=== PATIENT | female | born 1960 | race Caucasian/White ===

== ENCOUNTER 2017-04-20 13:52 | Outpatient (CLI) | payer MEDICARE, MEDICAID ==
[~2017-04-20 13:52] MED LIST: AMPH20CA3 PO; CLON-527 PO; FLUT1DIS4 IH; HYDR-3968 PO; HYDR12.5 PO; LEDI1TAB PO; TRAZ-146 PO; VALS160T2 PO
[2017-04-20 14:23] LABS: BASOPHILS % (AUTO) 0.7 % (0-1); EOSINOPHILS # (AUTO) 0.1 X10'3 (0-0.9); EOSINOPHILS % (AUTO) 2.6 % (0-6); HEMATOCRIT 42.6 % (35.0-45.0); HEMOGLOBIN 14.3 g/dl (12.0-16.0); LYMPHOCYTES # (AUTO) 1.7 X10'3 (1.1-4.8); LYMPHOCYTES % (AUTO) 36.1 % (21-51); MEAN CORPUSCULAR HGB CONC 33.5 % (33.0-36.5); MEAN CORPUSCULAR VOLUME 92.4 FL (78-98); MEAN PLATELET VOLUME 7.3 FL (7.4-10.4); MONOCYTES # (AUTO) 0.3 X10'3 (0-0.9); MONOCYTES % (AUTO) 5.9 % (2-12); NEUTROPHILS # (AUTO) 2.5 X10'3 (1.8-7.7); NEUTROPHILS % (AUTO) 54.7 % (42-75); PLATELET COUNT 272 X10'3 (140-440); RED BLOOD COUNT 4.61 X10'6 (4.20-5.60); RED CELL DISTRIBUTION WIDTH 14.6 % (11.5-14.5); WHITE BLOOD COUNT 4.7 X10'3 (4.5-11.0)
[2017-04-20 14:33] LABS: INR 0.9 INR; PARTIAL THROMBOPLASTIN TIME 25 SECONDS (22-32); PROTHROMBIN TIME 9.5 SECONDS (9.0-12.0)
[2017-04-20 14:37] LABS: ALANINE AMINOTRANSFERASE 22 U/L (12-78); ALBUMIN 3.6 G/DL (3.4-5.0); ALKALINE PHOSPHATASE 74 IU/L (46-116); ANION GAP 4 (8-16); ASPARTATE AMINO TRANSFERASE 16 U/L (10-37); BILIRUBIN,TOTAL 0.4 MG/DL (0.1-1.0); BLOOD UREA NITROGEN 23 MG/DL (7-18); BUN/CREATININE RATIO 18.9 (6.6-38.0); CALCIUM 9.2 MG/DL (8.5-10.1); CHLORIDE 107 MMOL/L (99-107); CREATININE 1.22 MG/DL (0.40-0.90); GLUCOSE 106 MG/DL (70-104); POTASSIUM 4.4 MMOL/L (3.5-5.1); SODIUM 142 MMOL/L (135-145); TOTAL CARBON DIOXIDE 30.6 MMOL/L (24-32); TOTAL PROTEIN 7.2 G/DL (6.4-8.2); eGFR 46 ML/MIN
== END 2017-04-20 23:59 | disposition home or self-care (01) ==
LOC: LAB 13:52
PROVIDERS: ATTEND Otolaryngology
DX: D69.1 Qualitative platelet defects (principal); I10 Essential (primary) hypertension; Z86.19 Personal history of other infectious and parasitic diseases
CPT/HCPCS: 36415; 80053; 85025; 85576; 85610; 85730

== ENCOUNTER 2018-05-26 11:20 | Emergency (ER) | payer MEDICARE, MEDICAID ==
[~2018-05-26] VITALS: Ht 167.6 cm; Wt 90.0 kg
[~2018-05-26 11:20] MED LIST changes: -TRAZ-146 PO; +TRAZ-219 PO
[2018-05-26] MEDS ORDERED: guaiFENesin/DM 10ml UD oral syrup PO ONE (12:45)
[2018-05-26] MEDS ORDERED: GUAI5SYR4 PO (12:48)
[2018-05-26 12:57] VITALS: BP 188/113
== END 2018-05-26 12:58 | disposition home or self-care (01) ==
LOC: ER 11:21
DX: J20.9 Acute bronchitis, unspecified (principal); R11.0 Nausea; I10 Essential (primary) hypertension; K21.9 Gastro-esophageal reflux disease without esophagitis; F41.9 Anxiety disorder, unspecified; M06.9 Rheumatoid arthritis, unspecified; F12.10 Cannabis abuse, uncomplicated; Z86.19 Personal history of other infectious and parasitic diseases; Z86.73 Personal history of transient ischemic attack (TIA), and cerebral infarction without residual deficits; Z98.890 Other specified postprocedural states; Z98.51 Tubal ligation status; Z88.2 Allergy status to sulfonamides; Z88.8 Allergy status to other drugs, medicaments and biological substances
CPT/HCPCS: 71046; 99283

== ENCOUNTER 2019-01-14 10:15 | Emergency (ER) | payer MEDICARE, MEDICAID ==
[~2019-01-14] VITALS: Ht 167.6 cm; Wt 85.3 kg
[~2019-01-14 10:15] MED LIST changes: +GUAI5SYR4 PO
[2019-01-14] MEDS ORDERED: ketorolac tromethamine 15mg/ml inj. IM ONE (11:40)
[2019-01-14 11:41] VITALS: BP 147/111
== END 2019-01-14 12:09 | disposition home or self-care (01) ==
LOC: ER 10:16
DX: S82.422A Displaced transverse fracture of shaft of left fibula, initial encounter for closed fracture (principal); I10 Essential (primary) hypertension; K21.9 Gastro-esophageal reflux disease without esophagitis; F41.9 Anxiety disorder, unspecified; M06.9 Rheumatoid arthritis, unspecified; F12.90 Cannabis use, unspecified, uncomplicated; Z98.51 Tubal ligation status; Z88.2 Allergy status to sulfonamides; Z88.8 Allergy status to other drugs, medicaments and biological substances; Z79.899 Other long term (current) drug therapy; Z86.73 Personal history of transient ischemic attack (TIA), and cerebral infarction without residual deficits; Z98.890 Other specified postprocedural states; W01.0XXA Fall on same level from slipping, tripping and stumbling without subsequent striking against object, initial encounter; Y93.01 Activity, walking, marching and hiking; Y92.89 Other specified places as the place of occurrence of the external cause; Y99.8 Other external cause status
CPT/HCPCS: 73630; 96372; 99284; J1885

== ENCOUNTER 2019-03-18 21:56 | Emergency (ER) | payer MEDICARE, MEDICAID ==
[~2019-03-18] VITALS: Ht 167.6 cm; Wt 85.0 kg
[2019-03-18 22:02] VITALS: BP 151/102
== END 2019-03-18 23:00 | disposition home or self-care (01) ==
LOC: ER 21:56
DX: S92.401D Displaced unspecified fracture of right great toe, subsequent encounter for fracture with routine healing (principal); I10 Essential (primary) hypertension; K21.9 Gastro-esophageal reflux disease without esophagitis; M06.9 Rheumatoid arthritis, unspecified; F12.90 Cannabis use, unspecified, uncomplicated; G89.29 Other chronic pain; Z98.51 Tubal ligation status; Z98.890 Other specified postprocedural states; Z88.2 Allergy status to sulfonamides; Z86.73 Personal history of transient ischemic attack (TIA), and cerebral infarction without residual deficits; Z88.8 Allergy status to other drugs, medicaments and biological substances; Z79.899 Other long term (current) drug therapy; W18.49XD Other slipping, tripping and stumbling without falling, subsequent encounter
CPT/HCPCS: 99282; 99283

== ENCOUNTER → 2020-11-12 | Emergency (ER) | payer MEDICARE, MEDICAID ==
[~2020-11-12] VITALS: Ht 167.6 cm; Wt 85.8 kg
[~2020-11-12] MED LIST changes: -TRAZ-219 PO; +TRAZ-256 PO
[2020-11-12 20:55] VITALS: BP 113/83
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
== END | disposition left against medical advice (07) ==
LOC: ER 20:46
DX: R68.84 Jaw pain (principal); Z53.21 Procedure and treatment not carried out due to patient leaving prior to being seen by health care provider

== ENCOUNTER 2021-09-29 02:23 | Emergency (ER) | payer MEDICARE, MEDICAID ==
[~2021-09-29] VITALS: Ht 172.7 cm; Wt 75.0 kg
[2021-09-29 03:42] LABS: APTT 27 SECONDS (22-32); D-DIMER 0.25 MG/L FEU (0-0.50)
[2021-09-29 04:03] LABS: BASOPHILS % (AUTO) 0.5 % (0-1); EOSINOPHILS # (AUTO) 0.1 X10'3 (0-0.9); EOSINOPHILS % (AUTO) 1.7 % (0-6); HEMATOCRIT 32.6 % (35.0-45.0); HEMOGLOBIN 11.2 g/dl (12.0-16.0); LYMPHOCYTES # (AUTO) 2.1 X10'3 (1.1-4.8); LYMPHOCYTES % (AUTO) 33.6 % (21-51); MEAN CORPUSCULAR HEMOGLOBIN 32.1 PG (27.0-31.0); MEAN CORPUSCULAR HGB CONC 34.3 g/dL (33.0-36.5); MEAN CORPUSCULAR VOLUME 93.7 FL (78-98); MEAN PLATELET VOLUME 7.6 FL (7.4-10.4); MONOCYTES # (AUTO) 0.4 X10'3 (0-0.9); MONOCYTES % (AUTO) 6.5 % (2-12); NEUTROPHILS # (AUTO) 3.5 X10'3 (1.8-7.7); NEUTROPHILS % (AUTO) 57.7 % (42-75); PLATELET COUNT 201 X10'3 (140-440); RED BLOOD COUNT 3.48 X10'6 (4.20-5.60); RED CELL DISTRIBUTION WIDTH 13.4 % (11.5-14.5); WHITE BLOOD COUNT 6.1 X10'3 (4.5-11.0)
[2021-09-29 04:08] LABS: ALANINE AMINOTRANSFERASE 12 U/L (12-78); ALBUMIN 3.2 G/DL (3.4-5.0); ALBUMIN/GLOBULIN RATIO 1.1 (1.1-1.5); ALKALINE PHOSPHATASE 51 IU/L (46-116); ANION GAP 6 (8-16); ASPARTATE AMINO TRANSFERASE 13 U/L (10-37); BILIRUBIN,TOTAL 0.6 MG/DL (0.1-1.0); BLOOD UREA NITROGEN 20 MG/DL (7-18); CALCIUM 8.6 MG/DL (8.5-10.1); CHLORIDE 105 MMOL/L (99-107); GLUCOSE 111 MG/DL (70-104); POTASSIUM 3.6 MMOL/L (3.5-5.1); SODIUM 139 MMOL/L (135-145); TOTAL CARBON DIOXIDE 27.6 MMOL/L (24-32); TOTAL PROTEIN 6.2 G/DL (6.4-8.2); eGFR 73 ML/MIN
[2021-09-29] MEDS ORDERED: ketorolac trometh inj. 60 MG/2 ML VIAL IM ONE (04:15)
[2021-09-29] MEDS ORDERED: ondansetron 4mg rapidly disintigrating tab PO ONE (04:25)
[2021-09-29] MEDS ORDERED: hydrOXYzine 10 MG tablet PO PRN (04:25)
[2021-09-29] MEDS ORDERED: morphine 4 MG/ML inj SYRINge IM ONE (05:00)
[2021-09-29 05:46] VITALS: BP 140/96
== END 2021-09-29 05:50 | disposition home or self-care (01) ==
LOC: ER 02:24
DX: S80.12XA Contusion of left lower leg, initial encounter (principal); R51.9 Headache, unspecified; R11.2 Nausea with vomiting, unspecified; I10 Essential (primary) hypertension; K21.9 Gastro-esophageal reflux disease without esophagitis; M19.90 Unspecified osteoarthritis, unspecified site; F41.9 Anxiety disorder, unspecified; F12.90 Cannabis use, unspecified, uncomplicated; Z86.19 Personal history of other infectious and parasitic diseases; Z86.73 Personal history of transient ischemic attack (TIA), and cerebral infarction without residual deficits; Z86.69 Personal history of other diseases of the nervous system and sense organs; Z98.51 Tubal ligation status; Z98.890 Other specified postprocedural states; Z88.2 Allergy status to sulfonamides; Z79.899 Other long term (current) drug therapy; X58.XXXA Exposure to other specified factors, initial encounter; Y93.89 Activity, other specified; Y92.89 Other specified places as the place of occurrence of the external cause; Y99.8 Other external cause status
CPT/HCPCS: 36415; 80053; 85025; 85379; 85610; 85730; 96372; 99284; J1885; J2270

== ENCOUNTER 2021-10-23 15:30 | Emergency (ER) | payer MEDICARE, MEDICAID ==
[~2021-10-23] VITALS: Ht 167.6 cm; Wt 76.2 kg
[2021-10-23 15:45] VITALS: BP 130/99
--- NOTE | 2021-10-23 17:19 | NUR ---
Discharge intructions was explained to patient, patient verbalized understanding and refused to be sent home with crunches. Stated she has a cane at home and would prefer to use that.
== END 2021-10-23 17:39 | disposition home or self-care (01) ==
LOC: ER 15:31
DX: S93.401A Sprain of unspecified ligament of right ankle, initial encounter (principal); K21.9 Gastro-esophageal reflux disease without esophagitis; I10 Essential (primary) hypertension; F41.9 Anxiety disorder, unspecified; F12.10 Cannabis abuse, uncomplicated; X50.0XXA Overexertion from strenuous movement or load, initial encounter; Y93.89 Activity, other specified; Y92.89 Other specified places as the place of occurrence of the external cause; Y99.8 Other external cause status
CPT/HCPCS: 73610; 99283; A6449

== ENCOUNTER 2021-11-25 01:41 | Emergency (ER) | payer MEDICARE, MEDICAID ==
[~2021-11-25] VITALS: Ht 167.6 cm; Wt 73.2 kg
[2021-11-25 02:39] LABS: BASOPHILS % (AUTO) 0.5 % (0-1); EOSINOPHILS # (AUTO) 0.1 X10'3 (0-0.9); EOSINOPHILS % (AUTO) 1.8 % (0-6); HEMOGLOBIN 12.4 g/dl (12.0-16.0); LYMPHOCYTES # (AUTO) 2.4 X10'3 (1.1-4.8); LYMPHOCYTES % (AUTO) 36.4 % (21-51); MEAN CORPUSCULAR HEMOGLOBIN 31.9 PG (27.0-31.0); MEAN CORPUSCULAR HGB CONC 34.3 g/dL (33.0-36.5); MEAN CORPUSCULAR VOLUME 93.1 FL (78-98); MONOCYTES # (AUTO) 0.4 X10'3 (0-0.9); MONOCYTES % (AUTO) 6.1 % (2-12); NEUTROPHILS # (AUTO) 3.6 X10'3 (1.8-7.7); NEUTROPHILS % (AUTO) 55.2 % (42-75); PLATELET COUNT 227 X10'3 (140-440); RED BLOOD COUNT 3.87 X10'6 (4.20-5.60); RED CELL DISTRIBUTION WIDTH 13.2 % (11.5-14.5); WHITE BLOOD COUNT 6.5 X10'3 (4.5-11.0)
[2021-11-25] MEDS ORDERED: AMPH30CA3 PO (02:40)
[2021-11-25] MEDS ORDERED: PROG200C11 PO (02:40)
[2021-11-25] MEDS ORDERED: HYDR25TA4 PO (02:40)
[2021-11-25] MEDS ORDERED: ESTR1PAT34 TOP (02:40)
[2021-11-25] MEDS ORDERED: POTA-208 PO (02:40)
[2021-11-25] MEDS ORDERED: LORA10TA7 (02:40)
[2021-11-25] MEDS ORDERED: DULO60CA65 PO (02:40)
[2021-11-25] MEDS ORDERED: GABA300T25 PO (02:40)
[2021-11-25] MEDS ORDERED: HYDR-3972 PO (02:40)
[2021-11-25] MEDS ORDERED: PROP20TA6 PO (02:40)
[2021-11-25] MEDS ORDERED: IBUP-1985 PO (02:40)
[2021-11-25 02:58] LABS: ALANINE AMINOTRANSFERASE 18 U/L (12-78); ALBUMIN 3.5 G/DL (3.4-5.0); ALKALINE PHOSPHATASE 61 IU/L (46-116); ANION GAP 6 (8-16); ASPARTATE AMINO TRANSFERASE 14 U/L (10-37); BILIRUBIN,TOTAL 0.5 MG/DL (0.1-1.0); BLOOD UREA NITROGEN 13 MG/DL (7-18); BUN/CREATININE RATIO 15.5 (6.6-38.0); CALCIUM 8.6 MG/DL (8.5-10.1); CHLORIDE 103 MMOL/L (99-107); CREATININE 0.84 MG/DL (0.40-0.90); GLUCOSE 84 MG/DL (70-104); POTASSIUM 3.8 MMOL/L (3.5-5.1); SODIUM 138 MMOL/L (135-145); eGFR 69 ML/MIN
[2021-11-25 03:44] VITALS: BP 108/77
== END 2021-11-25 03:51 | disposition home or self-care (01) ==
LOC: ER 01:42
DX: R42 Dizziness and giddiness (principal); I10 Essential (primary) hypertension; K21.9 Gastro-esophageal reflux disease without esophagitis; F41.9 Anxiety disorder, unspecified; F12.10 Cannabis abuse, uncomplicated; Z88.2 Allergy status to sulfonamides; Z88.8 Allergy status to other drugs, medicaments and biological substances; Z79.899 Other long term (current) drug therapy; Z98.51 Tubal ligation status
CPT/HCPCS: 71045; 80053; 83880; 84484; 85025; 93005; 99285

== ENCOUNTER 2022-09-20 01:25 | Emergency (ER) | payer MEDICARE, MEDICAID ==
[~2022-09-20] VITALS: Ht 167.6 cm; Wt 75.0 kg
[~2022-09-20 01:25] MED LIST changes: -AMPH20CA3 PO; +AMPH30CA3 PO; +DULO60CA65 PO; +ESTR1PAT34 TOP; +GABA300T25 PO; -GUAI5SYR4 PO; -HYDR-3968 PO; +HYDR-3972 PO; -HYDR12.5 PO; +HYDR25TA4 PO; +IBUP-1985 PO; -LEDI1TAB PO; +LORA10TA7; +POTA-208 PO; +PROG200C11 PO; +PROP20TA6 PO
[2022-09-20 01:31] VITALS: BP 142/97
--- NOTE | 2022-09-20 02:44 | NUR ---
Patient walked out declined jo-ann wrap and discharge paper work
--- NOTE | 2022-09-20 02:59 | NUR ---
Patient refused to wait for knee to be wraped with an jo-ann bandage and left the ER w/o discharge papers.
== END 2022-09-20 03:02 | disposition home or self-care (01) ==
LOC: ER 01:26
DX: M25.561 Pain in right knee (principal); F17.200 Nicotine dependence, unspecified, uncomplicated; I11.9 Hypertensive heart disease without heart failure; K21.9 Gastro-esophageal reflux disease without esophagitis; F31.9 Bipolar disorder, unspecified; F12.10 Cannabis abuse, uncomplicated; Z88.2 Allergy status to sulfonamides; Z88.8 Allergy status to other drugs, medicaments and biological substances; Z79.899 Other long term (current) drug therapy; Z79.1 Long term (current) use of non-steroidal anti-inflammatories (NSAID); Z79.2 Long term (current) use of antibiotics
CPT/HCPCS: 73564; 99283

== ENCOUNTER 2023-06-24 18:28 | Emergency (ER) | payer MEDICARE, MEDICAID ==
[~2023-06-24] VITALS: Ht 167.6 cm; Wt 72.0 kg
[2023-06-24 18:44] VITALS: BP 149/98; PULSE 80; RESP 16; TEMP 98.2; O2SAT 97
[2023-06-24 19:04] LABS: BASOPHILS % (AUTO) 0.2 % (0-1); EOSINOPHILS # (AUTO) 0.1 X10'3 (0-0.9); EOSINOPHILS % (AUTO) 0.5 % (0-6); HEMATOCRIT 41.5 % (35.0-45.0); HEMOGLOBIN 13.6 g/dl (12.0-16.0); LYMPHOCYTES # (AUTO) 1.7 X10'3 (1.1-4.8); MEAN CORPUSCULAR HEMOGLOBIN 31.1 PG (27.0-31.0); MEAN CORPUSCULAR HGB CONC 32.8 g/dL (33.0-36.5); MEAN CORPUSCULAR VOLUME 94.9 FL (78-98); MEAN PLATELET VOLUME 7.1 FL (7.4-10.4); MONOCYTES # (AUTO) 0.8 X10'3 (0-0.9); MONOCYTES % (AUTO) 5.1 % (2-12); NEUTROPHILS # (AUTO) 12.7 X10'3 (1.8-7.7); NEUTROPHILS % (AUTO) 83.2 % (42-75); PLATELET COUNT 273 X10'3 (140-440); RED BLOOD COUNT 4.37 X10'6 (4.20-5.60); RED CELL DISTRIBUTION WIDTH 13.3 % (11.5-14.5); WHITE BLOOD COUNT 15.3 X10'3 (4.5-11.0)
[2023-06-24 19:11] LABS: ALANINE AMINOTRANSFERASE 18 U/L (12-78); ALBUMIN 4.2 G/DL (3.4-5.0); ALBUMIN/GLOBULIN RATIO 1.2 (1.1-1.5); ALKALINE PHOSPHATASE 61 IU/L (46-116); ANION GAP 9 (8-16); ASPARTATE AMINO TRANSFERASE 16 U/L (10-37); BILIRUBIN,TOTAL 0.6 MG/DL (0.1-1.0); BLOOD UREA NITROGEN 13 MG/DL (7-18); BUN/CREATININE RATIO 14.8 (10.0-20.0); CALCIUM 8.6 MG/DL (8.5-10.1); CHLORIDE 101 MMOL/L (99-107); CREATININE 0.88 MG/DL (0.40-0.90); GLUCOSE 95 MG/DL (70-104); POTASSIUM 3.9 MMOL/L (3.5-5.1); SODIUM 139 MMOL/L (135-145); TOTAL CARBON DIOXIDE 28.6 MMOL/L (24-32); TOTAL PROTEIN 7.7 G/DL (6.4-8.2); eCRCL 62 ML/MIN; eGFR 65 ML/MIN
[2023-06-24 19:18] LABS: PRO BRAIN NATRIURETIC PEPTIDE 56 PG/ML (0-125)
== END 2023-06-24 23:03 | disposition left against medical advice (07) ==
LOC: ER 18:29
DX: R07.89 Other chest pain (principal); R00.2 Palpitations; M79.602 Pain in left arm; I10 Essential (primary) hypertension; Z53.21 Procedure and treatment not carried out due to patient leaving prior to being seen by health care provider
CPT/HCPCS: 36415; 71045; 80053; 83880; 84484; 85025; 93005; 99281

== ENCOUNTER 2024-04-04 20:14 | Emergency (ER) | payer MEDICARE, MEDICAID ==
[~2024-04-04] VITALS: Ht 167.6 cm; Wt 76.0 kg
[2024-04-04] MEDS: ketorolac trometh 30MG/ML vial 30 MG/ML VIAL IM ONE (22:41)
[2024-04-04] MEDS ORDERED: diazepam inj 5 MG/ML inj. IM ONE (23:20)
[2024-04-04 23:48] VITALS: BP 144/86; PULSE 60; RESP 18; TEMP 98.7; O2SAT 99
== END 2024-04-04 23:51 | disposition home or self-care (01) ==
LOC: ER 20:16
DX: S60.222A Contusion of left hand, initial encounter (principal); S60.221A Contusion of right hand, initial encounter; I10 Essential (primary) hypertension; K21.9 Gastro-esophageal reflux disease without esophagitis; F41.9 Anxiety disorder, unspecified; M06.9 Rheumatoid arthritis, unspecified; F12.90 Cannabis use, unspecified, uncomplicated; Z88.2 Allergy status to sulfonamides; Z86.73 Personal history of transient ischemic attack (TIA), and cerebral infarction without residual deficits; Z98.51 Tubal ligation status; Z95.0 Presence of cardiac pacemaker; Z88.8 Allergy status to other drugs, medicaments and biological substances; Z98.890 Other specified postprocedural states; W01.0XXA Fall on same level from slipping, tripping and stumbling without subsequent striking against object, initial encounter; Y93.89 Activity, other specified; Y92.481 Parking lot as the place of occurrence of the external cause; Y99.8 Other external cause status
CPT/HCPCS: 73100; 96372; 99283; J1885

== ENCOUNTER 2025-04-12 14:12 | Emergency (ER) | payer MEDICARE, MEDICAID ==
[~2025-04-12] VITALS: Ht 167.6 cm; Wt 83.5 kg
[~2025-04-12 14:12] MED LIST changes: -IBUP-1985 PO; +IBUP600T52 PO
[2025-04-12 14:15] VITALS: TEMP 99.4
[2025-04-12] MEDS ORDERED: CYCL-394 PO (16:50)
--- NOTE | 2025-04-12 16:51 | Physician Documentation ---
History of Present Illness ~ Chief Complaint: Hypertension Stated Complaint: HIGH BLOOD PRESSURE Time Seen by MD: 15:37 Primary Medical Doctor: Uli Clay Mode of Arrival: Ambulatory HPI [age]-year-old female presents to the ED after being sent here from her primary care for an elevated blood pressure. States he does have a headache with neck pain. Says she feels fine otherwise denies any chest pain shortness of breath nausea vomiting radiating pain weakness dizziness or any other cardiac-related symptoms. Denies any recent neck injury. States that she forgot to take her blood pressure medication today and feels as though her primary care provider over-reacted sending her to the ED Day of Onset: Apr 12, 2025 Medication Reconciliation Allergies: Coded Allergies: Sulfa (Sulfonamide Antibiotics) (Verified Allergy, Intermediate, HIVES, 04/12/25) quetiapine (Verified Allergy, Unknown, 04/12/25) lisinopril (Verified Adverse Reaction, Unknown, ITCHING COUGH, 04/12/25) Scheduled Amphet Asp/Amphet/D-Amphet XR* (Adderall XR*), 1 CAP PO QAM, (Reported) Clonazepam* (Klonopin*), 1 MG PO TID, (Reported) Cyclobenzaprine HCl (Cyclobenzaprine HCl), 1 TAB PO Q8H Duloxetine HCl (Duloxetine HCl), 1 CAP PO DAILY, (Reported) Estradiol (Estradiol), 1 PATCH TOP Q7D, (Reported) Fluticasone/Salmeterol (Advair 250-50 Diskus), 1 PUFF IH BID, (Reported) Hydrochlorothiazide (Hydrochlorothiazide), 1 TAB PO DAILY, (Reported) Potassium Chloride (Potassium Chloride), 1 TAB PO DAILY, (Reported) Progesterone,Micronized (Progesterone), 1 CAP PO DAILY, (Reported) Trazodone HCl (Trazodone HCl), 200 MG PO HS, (Reported) Valsartan* (Diovan*), 160 MG PO DAILY, (Reported) Scheduled PRN Ibuprofen (Ibuprofen), 1 TAB PO TID PRN for arthritis, (Reported) Propranolol Hcl (Propranolol Hcl), 1 TAB PO BID PRN for anxiety, (Reported) Miscellaneous Medications Gabapentin (Gralise), 300 CAPSULE PO, (Reported) Hydrocodone Bit/Acetaminophen (Hydrocodon-Acetaminophn 10-325 tablet), 1 TAB PO, (Reported) Loratadine (Loratadine), (Reported) Past Medical History Past Medical History: CVA/TIA/Stroke, Headache, Seizures, Hypertension, GERD, Hepatitis B, Hepatitis C, Pancreatitis, Arthritis, Rheumatoid Arthritis, Anxiety Past Surgical History: orthopedic surgeries, tubal ligation, other Other Past Surgical History: breast surgery, vascular surgery Alcohol Use: None Drug Use: marijuana Lives In: Other Occupation: disabled Review of Systems All Other Systems at this time: Reviewed and Negative ROS As stated above in the HPI, otherwise all systems are reviewed and negative. Physical Exam Vital Signs: Temperature: 99.4, Source: Temporal, Heart Rate: 74, Respiratory Rate: 14, BP: 155/115, Pulse Oximetry: 94, Weight: 83.500 Oxygen Flow Rate: 0 Physical Exam General: Alert, no apparent distress. Neck: Full range of motion. tender to left trapezius via palpation Respiratory: Lungs clear, no respiratory distress. Chest: No accessory muscle use. Cardiovascular: Regular rate and rhythm, no murmurs. Gastrointestinal: Soft, nontender, nondistended. Bowels sounds present. Extremities: Normal range of motion, no deformity. Neurologic: Oriented x4. Psychiatric: Normal mood and affect. Skin: Normal color, warm and dry. No edema, no ecchymosis. Progress Results/Orders Results/Orders Medications Received in ER Medications (Trade) Dose Ordered Sig/Ian Route PRN Reason Start Time Stop Time Status Last Admin Dose Admin (Apresoline tablet) 25 mg Q8H PO 04/12/25 16:15 04/12/25 17:28 DC 04/12/25 16:26 25 MG (Cozaar tablet) 50 mg DAILY PO 04/12/25 16:15 04/12/25 17:28 DC 04/12/25 16:26 50 MG (Toradol injection) 15 mg ONCE ONCE IV 04/12/25 17:00 04/12/25 17:03 DC 04/12/25 17:24 15 MG (Flexeril tablet) 10 mg ONCE ONCE PO 04/12/25 17:00 04/12/25 17:01 DC 04/12/25 17:25 10 MG Vital Signs 04/12/25 04/12/25 04/12/25 04/12/25 14:15 14:25 14:25 15:30 Temp 99.4 Pulse 86 88 74 Resp 16 15 15 B/P (MAP) 197/130 181/118 (139) 137/100 (112) Pulse Ox 93 95 98 O2 Flow Rate 0 0 0 04/12/25 04/12/25 04/12/25 04/12/25 16:26 16:26 16:27 17:17 Pulse 69 74 74 74 Resp 14 14 B/P (MAP) 155/115 (128) 160/116 Pulse Ox 94 95 O2 Flow Rate 0 Medical Decision Making Additional information obtaine: old records Findings Gave the patient hydralazine in her normal medication for blood pressure which helped her blood pressure trend downward. EKG indicates a left bundle branch block without any ST elevations. This is a chronic finding she has a serial EKGs that are comparable. Done this patient's history and present exam she reports that she only missed one dose of her blood pressure medication. For this reason I did not pursue labs which would provide creatinine values. Considering this is not a chronic hypertensive issue this feels prudent. She still complains of the headaches secondary to her neck pain. I will treat her with an NSAID and sent her home with muscle relaxers Do not see any reason to pursue further emergent evaluation as she has asymptomatic and not currently complaining IV cardiac symptoms Denies with the patient to be more compliant with her medication regimen and follow up with the primary care Differential Dx:Considerations: Include CHF, Include HTN, essential, Include HTN, accelerated, Include HTN, malignant, Include HTN, encephalopathy, Include medical noncompliance, Include medication withdrawal, Include pulmonary edema, Include renal failure, Include -induced, Include other Departure Disposition: 01 HOME / SELF CARE / HOMELESS Impression: Primary Impression: Benign hypertension Additional Impression: Neck pain Discharge Instructions: Hypertension, Adult Additional Instructions: As instructed you do not currently present with any signs of a cardiac event your EKG was reassuring as was your physical exam. Of course if you begin to have any chest pain shortness of breath weakness dizziness nausea vomiting that causes you concern please return to the ED or call 911 Referrals: NO PRIMARY CARE PROVIDER (PCP) Prescriptions Cyclobenzaprine HCl (Cyclobenzaprine HCl) 10 Mg Tablet 1 TAB PO Q8H for muscle spasms for 10 Days, #30 TAB Prov: DALE PAYTON NP 04/12/25 Education Educated: Patient Signature Scribe Signature: r Attestation: Scribed for Dale Payton Np by Dale Jacob NP . 04/12/25 17:04 DALE PAYTON NP Apr 12, 2025 16:51 JANE PATTON MD Apr 12, 2025 17:31
--- NOTE | 2025-04-12 16:55 | ELECTROCARDIOGRAPH REPORT ---
[facility] Test Date: 2025-04-12 Test Time: 16:53:03 Pat Name: JOHANNE PEACOCK Department: EMERGENCY ROOM Patient ID: [id number] Room: Gender: F Whistle Punk: OZZIE : [id number] Requested By: DALE ROBERTSON Order Number: [id number] Reading MD: Dr. ELLIS Emerson Measurements Intervals [place] Rate: 72 P: 45 ID: [id number] QRS: 23 QRSD: 148 T: 32 QT: 442 QTc: 484 Interpretive Statements Sinus rhythm Probable left atrial enlargement Left bundle branch block Electronically Signed On 04-13-2025 16:44:[address] ELLIS Emerson Please click the below link to view image of tracing.
[2025-04-12 17:17] VITALS: BP 160/116; PULSE 74; RESP 14; O2SAT 95
[2025-04-12] MEDS: ketorolac trometh 15mg/ml vial 15 MG/ML ML IV ONE (17:24)
== END 2025-04-12 17:28 | disposition home or self-care (01) ==
LOC: ER 14:12
DX: I10 Essential (primary) hypertension (principal); M54.2 Cervicalgia; K21.9 Gastro-esophageal reflux disease without esophagitis; F41.9 Anxiety disorder, unspecified; M19.90 Unspecified osteoarthritis, unspecified site; F12.90 Cannabis use, unspecified, uncomplicated; Z86.73 Personal history of transient ischemic attack (TIA), and cerebral infarction without residual deficits; Z87.19 Personal history of other diseases of the digestive system; Z88.2 Allergy status to sulfonamides; Z98.51 Tubal ligation status; Z88.8 Allergy status to other drugs, medicaments and biological substances; Z79.899 Other long term (current) drug therapy; Z98.890 Other specified postprocedural states; Z86.19 Personal history of other infectious and parasitic diseases
CPT/HCPCS: 93005; 96374; 99285; J1885; J7030